=== PATIENT | female | born 1970 | race Caucasian/White ===

== ENCOUNTER 2024-01-09 08:06 | Outpatient (OUT) | payer BC, SELFPAY ==
[2024-01-09 09:16] LABS: Anion Gap 11.5; BUN Creatinine Ratio 13.3; Calcium 8.5 mg/dL (8.5-10.1); Carbon Dioxide 28.7 mmol/L (21.0-32.0); Chloride 103 mmol/L (98-107); Chol HDL Ratio 3.1; Cholesterol 202 mg/dL (<=200); Estimated GFR (African America >60 (>=60); Estimated GFR (Non-African Ame >60 (>=60); Glucose 93 mg/dL (74-106); HDL Cholesterol 65 mg/dL (40-60); Potassium 4.2 mmol/L (3.5-5.1); Sodium 139 mmol/L (136-145); TSH W/ REFLEX FT4 2.175 uIU/mL (0.358-3.740); Triglycerides 72 mg/dL (<=150); VLDL CHOLESTEROL 14.4 mg/dL
[2024-01-09 09:45] LABS: Basophils Percent Auto 0.6 % (0.2-2.0); Eosinophils Absolute Auto 0.2 10^3/uL (0.0-0.7); Eosinophils Percent Auto 3.3 % (0.9-7.0); Hematocrit 43.4 % (36.0-48.0); Hemoglobin 13.7 g/dL (12.0-16.0); Immature Granulocytes Abs Auto 0.07 10^3/uL (0.00-0.03); Immature Granulocytes Pct Auto 1.1 % (0.0-0.5); Lymphocytes Absolute Auto 1.4 10^3/uL (1.2-3.8); Lymphocytes Percent Auto 21.9 % (20.5-60.0); Mean Corpuscular HGB Conc 31.6 g/dL (29.9-35.2); Mean Corpuscular Hemoglobin 29.5 pg (26.7-34.0); Mean Corpuscular Volume 93.3 fL (81.0-99.0); Mean Platelet Volume 10.6 fL (9.5-13.5); Monocytes Absolute Auto 0.5 10^3/uL (0.3-0.8); Monocytes Percent Auto 7.3 % (1.7-12.0); Neutrophils Absolute Auto 4.3 10^3/uL (1.4-6.5); Neutrophils Percent Auto 65.8 % (43.0-75.0); Platelet Count 289 10^3/uL (150-450); Red Blood Count 4.65 10^6/uL (4.20-5.40); White Blood Count 6.6 10^3/uL (4.0-11.0)
== END 2024-01-09 08:07 | disposition home or self-care (01) ==
LOC: LAB 08:06
PROVIDERS: PCP Family Medicine; Visit Provider Family Medicine
DX: E88.810 Metabolic syndrome (principal); E55.9 Vitamin D deficiency, unspecified
CPT/HCPCS: 36415; 80048; 80061; 82306; 84443; 85025

== ENCOUNTER 2024-02-04 07:21 | Outpatient (OUT) | payer BC, SELFPAY ==
--- NOTE | 2024-02-04 07:25 | MM_ITS ---
Patient Name: RASHAWN CHAHAL MR#: [id number] : 1970 Exam Date: 02/04/2024 Ordering Doctor: DR Ha Dee M.D. RADIOLOGY REPORT PROCEDURE: MM TOMOSYNTHESIS SCREENING BI COMPARISON: MG MAMM SCREEN ZE W CAD, 01/30/2022. MG MAMM DIAGNOSTIC 3D ZE CAD, 01/20/2023. INDICATIONS: Screening, Z12.31 Calculator Name NCI Breast Cancer Risk Assessment Tool 5 Year Breast Cancer Risk Not Reported. Lifetime Breast Cancer Risk Not Reported. Personal Breast Cancer No Personal Ovarian Cancer No Treatments None Family Cancers None LOCATION: [facility] BREAST COMPOSITION: The breasts are extremely dense, which lowers the sensitivity of mammography. FINDINGS: DIAGNOSTIC CATEGORY 2--BENIGN FINDING. NO CHANGE FROM COMPARISON. Scattered benign-appearing calcifications are present. Scattered benign-appearing lymph nodes are present. RIGHT BREAST: No significant suspicious finding. LEFT BREAST: No significant suspicious finding. Decrease in size of nodule upper outer quadrant RECOMMENDATIONS: ROUTINE MAMMOGRAM AND CLINICAL EVALUATION IN 12 MONTHS. PLEASE NOTE: A NORMAL MAMMOGRAM DOES NOT EXCLUDE THE POSSIBILITY OF BREAST CANCER. A CLINICALLY SUSPICIOUS PALPABLE LUMP SHOULD BE BIOPSIED. Dictated by: Aneudy Tolliver MD on 02/04/2024 at 10:39 Approved by: Aneudy Tolliver MD on 02/04/2024 at 10:41
== END 2024-02-04 07:22 | disposition home or self-care (01) ==
LOC: MAMMO 07:21
PROVIDERS: PCP Family Medicine; Visit Provider Family Medicine
DX: Z12.31 Encounter for screening mammogram for malignant neoplasm of breast (principal)
CPT/HCPCS: 77063; 77067

== ENCOUNTER 2024-04-22 07:34 | Outpatient (OUT) | payer BC, SELFPAY ==
--- OUTSIDE RECORDS SUMMARY | 2024-04-22 07:37 | XMS_ITS | CCD ---
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 Phone NISHA SEVILLA Admitting Unavailable NISHA SEVILLA Attending Unavailable NISHA SEVILLA Consulting Unavailable NISHA SEVILLA Attending Unavailable NISHA SEVILLA Consulting Unavailable NISHA SEVILLA Admitting Unavailable YOLIKELLY Echevarria Admitting Unavailable DR AYSE FLAHERTY Consulting Unavailable YOLIAMIRAHEW Attending Unavailable YOLI, KELLY Consulting Unavailable CHRISTINE, ELMA Referring Unavailable CHRISTINE, ELMA Primary Care Unavailable JOSE-AAMIR, BILL Primary Care Unavailabl e LORI ROSITA P Referring Unavailable JOSE-AAMIR, BILL Primary Care Unavailabl e LORI, ROSITA P Referring Unavailable CHRISTINE, ELMA Primary Care Unavailable CHRISTINE, ELMA Referring Unavailable Allergies Allergy Classification Reported Allergen(s) Allergy Type Date of Onset Reaction(s) Facility (1 source) Penicillin Drug Allergy 02-13-2021 [facility] Repository Problems Active Problems Problem Classification Problem Date Documented Da te Episodic/Chronic Immunizations and screening for infectious disease (4 sources) Encounter for immunization; Translations: [ENCOUNTER FOR IMMUNIZATION] Onset: 03-06-2021 Episodic Nonmalignant breast conditions (1 source) Solitary cyst of left breast; Translations: [Solitary cyst of left breast] Onset: 01-20-2023 Episodic Past or Other Problems Problem Classification Problem Date Documented Da te Episodic/Chronic Other connective tissue disease (4 sources) Pain in right hand; Translations: [PAIN IN RIGHT HAND] Onset: 09-25-2020 Episodic Other screening for suspected conditions (not mental disorders or infectious disease) (2 sources) Other abnormal and inconclusive findings on diagnostic imaging of breast; Translations: [Encounter for screening mammogram for malignant neoplasm of breast] Onset: 01-30-2022 Episodic Results Test Name Value Interpretation Reference Range Facil ity [facility] DIGITAL DIAGNOSTIC BILATERALon 01-20-2023 [facility] DIGITAL DIAGNOSTIC BILATERAL EXAMINATION: [facility] DIGITAL DIAGNOSTIC BILATERAL; US BREAST LIMITED LEFT 01/20/2023 TECHNIQUE: 12 digital mammographic views of both breast(s) are submitted for interpretation. Digital Tomosynthesis was performed. Left breast ultrasound COMPARISON: 01/30/2022 HISTORY: ORDERING SYSTEM PROVIDED HISTORY: Cyst, breast, left TECHNOLOGIST PROVIDED HISTORY: With US if needed Reason for exam:->cyst on left breast Increasing painful left cyst TC score of 18.3% life time FINDINGS: BREAST COMPOSITION: The breast parenchyma is heterogeneously dense(c) which may obscure small masses. There are no new suspicious abnormal masses, aggressive calcifications or architectural distortion. The rounded density in the upper outer quadrant of the left breast remains present and measures approximately 4 cm in diameter. The previous reported cyst is smaller than the previous exam.. Left breast ultrasound: Multiple longitudinal and transverse scans were obtained with special attention to the upper-outer quadrant of the left breast. There is persistent 2 simple cysts abutting 1 another with the largest measuring approximately 4 cm in diameter. The 2nd cyst is much smaller measuring approximately 0.6 cm in diameter. The richards are thin and there is good through transmission without evidence of malignancy. IMPRESSION: Persistent simple large cyst upper-outer quadrant left breast measuring up to 4 cm in diameter. BIRADS: BIRADS - CATEGORY 2 - Benign finding(s). The patient complains of of pain over the cyst and I recommend cyst aspiration under ultrasound guidance for treatment if desired. The [employer] [employer] and the Society of Breast Imaging recommends women receive annual mammograms starting at age 40. The [place] [employer]'s guidelines for women at AVERAGE RISK for breast cancer include: Women ages 40 to 44 should have a choice to start annual breast cancer screening with mammograms if they wish to do so. The risks of screening as well as the potential benefits should be considered. Women age 45 to 54 should get a mammogram every year. Women age 55 and older should switch to mammograms every 2 years, or have the choice to continue yearly screening. Women with a personal history of breast cancer, a family history of breast cancer, a genetic mutation known to increase risk of breast cancer (such as BRCA), and women who had radiation therapy to the chest before the age of 30 are at higher risk for breast cancer, not average risk and additional screening may be indicated. The above report was generated using voice recognition software. It may contain grammatical, syntax and spelling errors. Interpreted by: Alok Lara III, DO Signed by: Alok Lara III, DO 01/20/23 Final result Normal [facility] US BREAST LIMITED LEFTon US BREAST LIMITED LEFT EXAMINATION: [facility] DIGITAL DIAGNOSTIC BILATERAL; US BREAST LIMITED LEFT 01/20/2023 TECHNIQUE: 12 digital mammographic views of both breast(s) are submitted for interpretation. Digital Tomosynthesis was performed. Left breast ultrasound COMPARISON: 01/30/2022 HISTORY: ORDERING SYSTEM PROVIDED HISTORY: Cyst, breast, left TECHNOLOGIST PROVIDED HISTORY: With US if needed Reason for exam:->cyst on left breast Increasing painful left cyst TC score of 18.3% life time FINDINGS: BREAST COMPOSITION: The breast parenchyma is heterogeneously dense(c) which may obscure small masses. There are no new suspicious abnormal masses, aggressive calcifications or architectural distortion. The rounded density in the upper outer quadrant of the left breast remains present and measures approximately 4 cm in diameter. The previous reported cyst is smaller than the previous exam.. Left breast ultrasound: Multiple longitudinal and transverse scans were obtained with special attention to the upper-outer quadrant of the left breast. There is persistent 2 simple cysts abutting 1 another with the largest measuring approximately 4 cm in diameter. The 2nd cyst is much smaller measuring approximately 0.6 cm in diameter. The richards are thin and there is good through transmission without evidence of malignancy. IMPRESSION: Persistent simple large cyst upper-outer quadrant left breast measuring up to 4 cm in diameter. BIRADS: BIRADS - CATEGORY 2 - Benign finding(s). The patient complains of of pain over the cyst and I recommend cyst aspiration under ultrasound guidance for treatment if desired. The [place] [employer] and the Society of Breast Imaging recommends women receive annual mammograms starting at age 40. The [place] [employer]'s guidelines for women at AVERAGE RISK for breast cancer include: Women ages 40 to 44 should have a choice to start annual breast cancer screening with mammograms if they wish to do so. The risks of screening as well as the potential benefits should be considered. Women age 45 to 54 should get a mammogram every year. Women age 55 and older should switch to mammograms every 2 years, or have the choice to continue yearly screening. Women with a personal history of breast cancer, a family history of breast cancer, a genetic mutation known to increase risk of breast cancer (such as BRCA), and women who had radiation therapy to the chest before the age of 30 are at higher risk for breast cancer, not average risk and additional screening may be indicated. The above report was generated using voice recognition software. It may contain grammatical, syntax and spelling errors. Interpreted by: Alok Lara III, DO Signed by: Alok Lara III, DO 01/20/23 Final result Normal [facility] US BREAST LIMITED LEFTon US BREAST LIMITED LEFT COMPARISON: September 25, 2012, ultrasound left breast; January 30, 2022, mammogram HISTORY: R92.8 Abnormal mammogram ICD10 PATIENT NAME: RASHAWN CHAHAL: TECHNIQUE: US BREAST LIMITED LEFT FINDINGS: At 2:00 6 cm from the nipple 4.8 x 3.9 x 2.2 cm cyst is seen. It has a single septation. There also is an adjacent cyst that measures 0.9 x 1.0 x 0.8 cm. This appears to be a simple cyst. IMPRESSION: Recommend annual bilateral 2-D and 3-D mammograms, routine physicals as recommended and any palpable abnormality be managed based on findings clinical examination. BI-RADS 2: BENIGN FINDINGS. Board Certified Radiologists. Accredited by the ACR and FDA. MAMMOGRAPHY IS VERY IMPORTANT TO YOUR HEALTH. THE [place] [employer] GUIDELINES RECOMMEND THAT WOMEN 40 YEARS OF AGE AND OLDER SHOULD HAVE A MAMMOGRAM EVERY YEAR. A REMINDER LETTER WILL BE SENT AT THE APPROPRIATE TIME. Interpreted by: Kaushik Tamez DO Signed by: Kaushik Tamez DO 02/06/22 Final result Normal [facility] DIGITAL SCREEN AGATHA Weiner 01-30-2022 [facility] DIGITAL SCREEN BILATERAL EXAMINATION: [facility]IO DIGITAL SCREEN BILATERAL CLINICAL HISTORY:Z12.31 ENCOUNTER FOR SCREENING MAMMOGRAM FOR MALIGNANT NEOPLASM OF BREAST ICD10 COMPARISON: APRIL 22, 2018 FINDINGS:3-D tomosynthesis imaging of the bilateral breasts was performed. The breasts are extremely dense, which lowers the sensitivity of mammography. 5 cm mass upper outer left breast. Additional imaging recommended. CAD analysis was performed and used in the interpretation. IMPRESSION: BI-RADS 0: NEED ADDITIONAL IMAGING EVALUATION. Board Certified Radiologists. Accredited by the ACR and FDA. MAMMOGRAPHY IS VERY IMPORTANT TO YOUR HEALTH. THE [place] [employer] GUIDELINES RECOMMEND THAT WOMEN 40 YEARS OF AGE AND OLDER SHOULD HAVE A MAMMOGRAM EVERY YEAR. A REMINDER LETTER WILL BE SENT AT THE APPROPRIATE TIME. THIS FACILITY UTILIZES A REMINDER SYSTEM TO ENSURE ALL PATIENTS RECEIVE REMINDER NOTIFICATIONS AT THE APPROPRIATE TIME BASED ON THE RECOMMENDATIONS OF THIS EXAM. THIS INCLUDES REMINDERS FOR ROUTINE SCREENING MAMMOGRAMS, DIAGNOSTIC MAMMOGRAMS IN WHICH THE PATIENT IS ASKED TO RETURN FOR ADDITIONAL VIEWS, OR OTHER BREAST IMAGING INTERVENTIONS WHEN APPROPRIATE. THE PATIENT WILL BE PLACED IN THE APPROPRIATE REMINDER SYSTEM INCLUDING A REMINDER AT THE APPROPRIATE TIME FOR ANY PENDING ADDITIONAL VIEWS. April 22, 2018 Interpreted by: Pranav Carrillo MD Signed by: Pranav Carrillo MD 02/02/22 Final result Normal [facility] CBC With Platelet and Differ entialon 03-30-2021 Basophils (Bld) [#/Vol] 0.0 10*3/uL Normal 0.0-0.2 [facility] Comment on above: Performed By: #### C BCWD #### [facility] [address] [place] [address] Basophils/100 WBC (Bld) 0.3 % Normal [facility] Comment on above: Performed By: #### C BCWD #### [facility] [address] [place] [address] Eosinophils (Bld) [#/Vol] 0.2 10*3/uL Normal 0.0-0.7 [facility] Comment on above: Performed By: #### C BCWD #### [facility] [address] [place] [address] Eosinophils/100 WBC (Bld) 2.7 % Normal [facility] Comment on above: Performed By: #### C BCWD #### [facility] [address] [place] [address] Erythrocyte distribution width (RBC) [Ratio] 13.2 % Normal 11.5-14.5 [facility] Comment on above: Performed By: #### C BCWD #### [facility] [address] [place] [address] Hematocrit (Bld) [Volume fraction] 43.5 % Normal 37.0-47.0 [facility] Comment on above: Performed By: #### C BCWD #### [facility] [address] [place] [address] Hemoglobin (Bld) [Mass/Vol] 14.3 g/dL Normal 12.0-16.0 [facility] Comment on above: Performed By: #### C BCWD #### [facility] [address] [place] [address] Lymphocytes (Bld) [#/Vol] 1.1 10*3/uL Normal 1.0-4.8 [facility] Comment on above: Performed By: #### C BCWD #### [facility] [address] [place] [address] Lymphocytes/100 WBC (Bld) 16.2 % Normal [facility] Comment on above: Performed By: #### C BCWD #### [facility] [address] [place] [address] MCH (RBC) [Entitic mass] 30.5 pg Normal 27.0-31.3 [facility] Comment on above: Performed By: #### C BCWD #### [facility] [address] [place] [address] MCHC 33.0 % Normal 33.0-37.0 [facility] Comment on above: Performed By: #### C BCWD #### [facility] [address] [place] [address] MCV (RBC) [Entitic vol] 92.4 fL Normal 82.0-100.0 [facility] Comment on above: Performed By: #### C BCWD #### [facility] [address] [place] [address] Monocytes (Bld) [#/Vol] 0.5 10*3/uL Normal 0.2-0.8 [facility] Comment on above: Performed By: #### C BCWD #### [facility] [address] [place] [address] Monocytes/100 WBC (Bld) 7.1 % Normal [facility] Comment on above: Performed By: #### C BCWD #### [facility] [address] [place] [address] Neutrophils (Bld) [#/Vol] 4.8 10*3/uL Normal 1.4-6.5 [facility] Comment on above: Performed By: #### C BCWD #### [facility] [address] [place] [address] Neutrophils/100 WBC (Bld) 73.7 % Normal [facility] Comment on above: Performed By: #### C BCWD #### [facility] [address] [place] [address] Platelets (Bld) [#/Vol] 261 10*3/uL Normal 130-400 [facility] Comment on above: Performed By: #### C BCWD #### [facility] [address] [place] [address] RBC (Bld) [#/Vol] 4.71 10*6/uL Normal 4.20-5.40 [facility] Comment on above: Performed By: #### C BCWD #### [facility] [address] [place] [address] WBC (Bld) [#/Vol] 6.6 10*3/uL Normal 4.8-10.8 [facility] Comment on above: Performed By: #### C BCWD #### [facility] [address] [place] [address] Comprehensive Metabolic Pane johanny 03-30-2021 Albumin [Mass/Vol] 4.5 g/dL Normal 3.5-4.6 [facility] Comment on above: Performed By: #### F SH #### [facility] [address] [place] [address] ALP [Catalytic activity/Vol] 79 U/L Normal 40-130 [facility] Comment on above: Performed By: #### F SH #### [facility] [address] [place] [address] ALT [Catalytic activity/Vol] 19 U/L Normal 0-33 [facility] Comment on above: Performed By: #### F SH #### [facility] [address] [place] [address] Anion gap [Moles/Vol] 13 mmol/L Normal 9-15 [facility] Comment on above: Performed By: #### F SH #### [facility] [address] [place] [address] AST [Catalytic activity/Vol] 17 U/L Normal 0-35 [facility] Comment on above: Performed By: #### F SH #### [facility] [address] [place] [address] Bilirubin [Mass/Vol] 0.4 mg/dL Normal 0.2-0.7 [facility] [place] Comment on above: Performed By: #### F SH #### [facility] [address] [place] [address] Calcium [Mass/Vol] 8.9 mg/dL Normal 8.5-9.9 [facility] Comment on above: Performed By: #### F SH #### [facility] [address] [place] [address] Chloride [Moles/Vol] 104 mmol/L Normal 95-107 [facility] [place] Comment on above: Performed By: #### F SH #### [facility] [address] [place] [address] CO2 [Moles/Vol] 25 mmol/L Normal 20-31 [facility] Comment on above: Performed By: #### F SH #### [facility] [address] [place] [address] Creatinine [Mass/Vol] 0.65 mg/dL Normal 0.50-0.90 [facility] Comment on above: Performed By: #### F SH #### [facility] [address] [place] [address] GFR >60.0 Normal >60 [facility] Comment on above: Result Comment: >60 mL/min/1.73m2 EGFR, calc. for ages 18 and older using the MDRD formula (not corrected for weight), is valid for stable renal function. Performed By: #### F SH #### [facility] [address] [place] [address] GFR/1.73 sq M.predicted among blacks MDRD (S/P/Bld) [Vol rate/Area] mL/min/{1.73_m2} Normal >60 [facility] Comment on above: Result Comment: >60 mL/min/1.73m2 EGFR, calc. for ages 18 and older using the MDRD formula (not corrected for weight), is valid for stable renal function. Performed By: #### F SH #### [facility] [address] [place] [address] Globulin (S) [Mass/Vol] 2.2 g/dL Low 2.3-3.5 [facility] Comment on above: Performed By: #### F SH #### [facility] [address] [place] [address] Glucose [Mass/Vol] 88 mg/dL Normal 70-99 [facility] Comment on above: Performed By: #### F SH #### [facility] [address] [place] [address] Potassium [Moles/Vol] 4.4 mmol/L Normal 3.4-4.9 [facility] Comment on above: Performed By: #### F SH #### [facility] [address] [place] [address] Protein [Mass/Vol] 6.7 g/dL Normal 6.3-8.0 [facility] Comment on above: Performed By: #### F SH #### [facility] [address] [place] [address] Sodium [Moles/Vol] 142 mmol/L Normal 135-144 [facility] Comment on above: Performed By: #### F SH #### [facility] [address] [place] [address] Urea nitrogen [Mass/Vol] 10 mg/dL Normal 6-20 [facility] Comment on above: Performed By: #### F SH #### [facility] [address] [place] [address] Estradiolon 03-30-2021 Estradiol 175 pg/mL Normal [facility] Comment on above: Result Comment: Defa ult Normal Ranges: Women Follicular Phase: 12.4-233 Ovulation Phase: 41.0-398 Luteal Phase: 22.3-341 Postmenopause: <5-138 1st Trimester: 136-3243 2nd Trimester: 1561-85294 3rd Trimester: 8525->86281 Males 25.8-60.7 Due to the risk of cross-reactivity of Fulvestrant with this method, estradiol results may be falsely elevated. For patients being treated with Fulvestrant, it is recommended that estradiol be monitored using Free Estradiol by Liquid Chromatography-Mass Spectrometry. Performed By: #### F SH #### [facility] [address] [place] [address] FSHon 03-30-2021 FSH 16.5 mIU/mL Normal [facility] Comment on above: Result Comment: Expe cted Values Normally Menstruating Females Follicular Phase: 2.5 - 12.5 mIU/mL Mid-Cycle Peak : 4.7 - 21.5 mIU/mL Luteal Phase: 1.7 - 7.7 mIU/mL Females: Less than 0.3mIU/mL Post Menopausal Females: 25.8 - 134.8 mIU/mL Males(13 - 70 years): 1.5 - 12.4 mIU/mL Performed By: #### F SH #### [facility] [address] [place] [address] Lipid Panel Fastingon 2020 Cholesterol [Mass/Vol] 263 mg/dL Critically high 0-199 [facility] Comment on above: Result Comment: ATP III Cholesterol Classification is High. Performed By: #### L IPDF #### [facility] [address] [place] [address] HDL Cholesterol Fasting 47 mg/dL Normal 40-59 [facility] Comment on above: Result Comment: ATP III HDL Cholesterol Classification is Desirable. Expected Values: Males: >55 = No Risk 35-55 = Moderate Risk <35 = High Risk Females: >65 = No Risk 45-65 = Moderate Risk <45 = High Risk NCEP Guidelines: Third Report October 2000 >59 = negative risk factor for CHD <40 = major risk factor for CHD Performed By: #### L IPDF #### [facility] [address] [facility] [address] LDL Cholesterol (Calculated) Fasting 192 mg/dL Critically high 0-129 [facility] Comment on above: Result Comment: ATT III Classification is Very High. Performed By: #### L IPDF #### [facility] [address] [facility] [address] Triglycerides Fasting 120 mg/dL Normal 0-150 [facility] Comment on above: Result Comment: ATP III Triglycerides Classification is Normal. Performed By: #### L IPDF #### [facility] [address] [facility] [address] Luteinizing Hormoneon 2020 Luteinizing Hormone 46.1 mIU/mL Normal [facility] [place] Comment on above: Result Comment: Expe cted Values: Females: Follicular Phase: 2.4 - 12.6 mIU/mL Mid- Cycle Peak: 14.0 - 95.6 mIU/mL Luteal Phase: 1.0 - 11.4 mIU/mL Post Menopausal: 7.7 - 58.5 mIU/mL Males: 1.7 - 8.6 mIU/mL Performed By: #### L H #### [facility] [address] [facility] [address] TSH w/Reflexon 03-30-2021 TSH w/Reflex 1.700 uIU/mL Normal 0.440-3.86 [facility] Comment on above: Performed By: #### T SHR #### [facility] [address] [facility] [address] Vitamin Don 03-30-2021 Vitamin D 32.7 ng/mL Normal 30.0-100.0 [facility] Comment on above: Result Comment: (30- 100 ng/mL) Optimum Level This assay accurately quantifies the sum of vitamin D3, 25-Hydroxy and vitamin D2, 25-Hyroxy. Performed By: #### V ITD #### [facility] [address] [place] [address] COVID-19, NAAon 06-14-2020 SARS-CoV-2 (COVID-19) RNA VENUS+probe Ql (Unsp spec) Detected Abnormal Not Detect [facility] Comment on above: Result Comment: This nucleic acid amplification test was developed and its performance characteristics determined by [employer]. Nucleic acid amplification tests include PCR and TMA. This test has not been FDA cleared or approved. This test has been authorized by FDA under an Emergency Use Authorization (EUA). This test is only authorized for the duration of time the declaration that circumstances exist justifying the authorization of the emergency use of in vitro diagnostic tests for detection of SARS-CoV-2 virus and/or diagnosis of COVID-19 infection under section 564(b)(1) of the Act, 21 U.S.C. 360bbb-3(b) (1), unless the authorization is terminated or revoked sooner. When diagnostic testing is negative, the possibility of a false negative result should be considered in the context of a patient's recent exposures and the presence of clinical signs and symptoms consistent with COVID-19. An individual without symptoms of COVID-19 and who is not shedding SARS-CoV-2 virus would expect to have a negative (not detected) result in this assay. Performed at: [facility] [address], [place] [id number] Claim Professional: Nicole Whittington MD, Phone: [phone] Performed By: #### F SH #### [facility] [address] [place] [address] COVID-19, NAAon 06-13-2020 Source Swab Anterior nares Normal [facility] Comment on above: Performed By: #### F SH #### [facility] [address] [place] [address] FSHon 05-21-2020 FSH 13.9 mIU/mL Normal [facility] Comment on above: Result Comment: Expe cted Values Normally Menstruating Females Follicular Phase: 2.5 - 12.5 mIU/mL Mid-Cycle Peak : 4.7 - 21.5 mIU/mL Luteal Phase: 1.7 - 7.7 mIU/mL Females: Less than 0.3mIU/mL Post Menopausal Females: 25.8 - 134.8 mIU/mL Males(13 - 70 years): 1.5 - 12.4 mIU/mL Performed By: #### F SH #### [facility] [address] [place] [address] CBC With Platelet and Differ entialon 05-20-2020 Basophils (Bld) [#/Vol] 0.0 10*3/uL Normal 0.0-0.2 [facility] Comment on above: Performed By: #### C BCWD #### [facility] [address] [place] [address] Basophils/100 WBC (Bld) 0.5 % Normal [facility] Comment on above: Performed By: #### C BCWD #### [facility] [address] [place] [address] Eosinophils (Bld) [#/Vol] 0.1 10*3/uL Normal 0.0-0.7 [facility] Comment on above: Performed By: #### C BCWD #### [facility] [address] [place] [address] Eosinophils/100 WBC (Bld) 3.1 % Normal [facility] Comment on above: Performed By: #### C BCWD #### [facility] [address] [place] [address] Erythrocyte distribution width (RBC) [Ratio] 13.1 % Normal 11.5-14.5 [facility] Comment on above: Performed By: #### C BCWD #### [facility] [address] [place] [address] Hematocrit (Bld) [Volume fraction] 40.3 % Normal 37.0-47.0 [facility] Comment on above: Performed By: #### C BCWD #### [facility] [address] [place] [address] Hemoglobin (Bld) [Mass/Vol] 13.3 g/dL Normal 12.0-16.0 [facility] Comment on above: Performed By: #### C BCWD #### [facility] [address] [place] [address] Lymphocytes (Bld) [#/Vol] 1.1 10*3/uL Normal 1.0-4.8 [facility] Comment on above: Performed By: #### C BCWD #### [facility] [address] [place] [address] Lymphocytes/100 WBC (Bld) 22.9 % Normal [facility] Comment on above: Performed By: #### C BCWD #### [facility] [address] [place] [address] MCH (RBC) [Entitic mass] 30.3 pg Normal 27.0-31.3 [facility] Comment on above: Performed By: #### C BCWD #### [facility] [address] [place] [address] MCHC 33.1 % Normal 33.0-37.0 [facility] Comment on above: Performed By: #### C BCWD #### [facility] [address] [place] [address] MCV (RBC) [Entitic vol] 91.4 fL Normal 82.0-100.0 [facility] Comment on above: Performed By: #### C BCWD #### [facility] [address] [place] [address] Monocytes (Bld) [#/Vol] 0.3 10*3/uL Normal 0.2-0.8 [facility] Comment on above: Performed By: #### C BCWD #### [facility] [address] [place] [address] Monocytes/100 WBC (Bld) 6.4 % Normal [facility] Comment on above: Performed By: #### C BCWD #### [facility] [address] [place] [address] Neutrophils (Bld) [#/Vol] 3.2 10*3/uL Normal 1.4-6.5 [facility] Comment on above: Performed By: #### C BCWD #### [facility] [address] [place] [address] Neutrophils/100 WBC (Bld) 67.1 % Normal [facility] Comment on above: Performed By: #### C BCWD #### [facility] [address] [place] [address] Platelets (Bld) [#/Vol] 268 10*3/uL Normal 130-400 [facility] Comment on above: Performed By: #### C BCWD #### [facility] [address] [place] [address] RBC (Bld) [#/Vol] 4.41 10*6/uL Normal 4.20-5.40 [facility] Comment on above: Performed By: #### C BCWD #### [facility] [address] [place] [address] WBC (Bld) [#/Vol] 4.8 10*3/uL Normal 4.8-10.8 [facility] Comment on above: Performed By: #### C BCWD #### [facility] [address] [place] [address] Comprehensive Metabolic Pane johanny 05-20-2020 Albumin [Mass/Vol] 3.8 g/dL Normal 3.5-4.6 [facility] Comment on above: Performed By: #### F SH #### [facility] [address] [place] [address] ALP [Catalytic activity/Vol] 75 U/L Normal 40-130 [facility] Comment on above: Performed By: #### F SH #### [facility] [address] [place] [address] ALT [Catalytic activity/Vol] 27 U/L Normal 0-33 [facility] Comment on above: Performed By: #### F SH #### [facility] [address] [place] [address] Anion gap [Moles/Vol] 9 mmol/L Normal 9-15 [facility] Comment on above: Performed By: #### F SH #### [facility] [address] [place] [address] AST [Catalytic activity/Vol] 20 U/L Normal 0-35 [facility] Comment on above: Performed By: #### F SH #### [facility] [address] [place] [address] Bilirubin [Mass/Vol] 0.3 mg/dL Normal 0.2-0.7 [facility] [place] Comment on above: Performed By: #### F SH #### [facility] [address] [place] [address] Calcium [Mass/Vol] 8.5 mg/dL Normal 8.5-9.9 [facility] Comment on above: Performed By: #### F SH #### [facility] [address] [place] [address] Chloride [Moles/Vol] 105 mmol/L Normal 95-107 [facility] [place] Comment on above: Performed By: #### F SH #### [facility] [address] [place] [address] CO2 [Moles/Vol] 27 mmol/L Normal 20-31 [facility] Comment on above: Performed By: #### F SH #### [facility] [address] [place] [address] Creatinine [Mass/Vol] 0.57 mg/dL Normal 0.50-0.90 [facility] Comment on above: Performed By: #### F SH #### [facility] [address] [place] [address] GFR >60.0 Normal >60 [facility] Comment on above: Result Comment: >60 mL/min/1.73m2 EGFR, calc. for ages 18 and older using the MDRD formula (not corrected for weight), is valid for stable renal function. Performed By: #### F SH #### [facility] [address] [place] [address] GFR/1.73 sq M.predicted among blacks MDRD (S/P/Bld) [Vol rate/Area] mL/min/{1.73_m2} Normal >60 [facility] Comment on above: Result Comment: >60 mL/min/1.73m2 EGFR, calc. for ages 18 and older using the MDRD formula (not corrected for weight), is valid for stable renal function. Performed By: #### F SH #### [facility] [address] [place] [address] Globulin (S) [Mass/Vol] 2.3 g/dL Normal 2.3-3.5 [facility] Comment on above: Performed By: #### F SH #### [facility] [address] [place] [address] Glucose [Mass/Vol] 88 mg/dL Normal 70-99 [facility] Comment on above: Performed By: #### F SH #### [facility] [address] [place] [address] Potassium [Moles/Vol] 3.9 mmol/L Normal 3.4-4.9 [facility] Comment on above: Performed By: #### F SH #### [facility] [address] [place] [address] Protein [Mass/Vol] 6.1 g/dL Low 6.3-8.0 [facility] Comment on above: Performed By: #### F SH #### [facility] [address] [place] [address] Sodium [Moles/Vol] 141 mmol/L Normal 135-144 [facility] Comment on above: Performed By: #### F SH #### [facility] [address] [place] [address] Urea nitrogen [Mass/Vol] 9 mg/dL Normal 6-20 [facility] Comment on above: Performed By: #### F SH #### [facility] [address] [place] [address] Lipid Panel Fastingon 2019 Cholesterol [Mass/Vol] 258 mg/dL Critically high 0-199 [facility] Comment on above: Result Comment: ATP III Cholesterol Classification is High. Performed By: #### L IPDF #### [facility] [address] [place] [address] HDL Cholesterol Fasting 43 mg/dL Normal 40-59 [facility] Comment on above: Result Comment: ATP III HDL Cholesterol Classification is Desirable. Expected Values: Males: >55 = No Risk 35-55 = Moderate Risk <35 = High Risk Females: >65 = No Risk 45-65 = Moderate Risk <45 = High Risk NCEP Guidelines: Third Report October 2000 >59 = negative risk factor for CHD <40 = major risk factor for CHD Performed By: #### L IPDF #### [facility] [address] [place] [address] LDL Cholesterol (Calculated) Fasting 175 mg/dL Critically high 0-129 [facility] Comment on above: Result Comment: ATP III LDL Classification is High. Performed By: #### L IPDF #### [facility] [address] [place] [address] Triglycerides Fasting 198 mg/dL Critically high 0-150 [facility] Comment on above: Result Comment: ATP III Triglycerides Classification is Borderline High. Performed By: #### L IPDF #### [facility] [address] [place] [address] TSH w/out Reflexon 0 TSH w/out Reflex 2.430 uIU/mL Normal 0.440-3.86 [facility] Comment on above: Performed By: #### T SH #### [facility] [address] [place] [address] Vitamin Don 05-20-2020 Vitamin D 22.7 ng/mL Low 30.0-100.0 [facility] Comment on above: Result Comment: (20- 30 ng/mL) Insufficiency This assay accurately quantifies the sum of vitamin D3, 25-Hydroxy and vitamin D2, 25-Hyroxy. Performed By: #### V ITD #### [facility] [address] [place] [address] Encounters Encounter Date Encounter Type Care Provider Facility Start: 01-20-2023 End: 01-23-2023 ambulatory [facility] Start: 02-06-2022 End: 02-09-2022 ambulatory [facility] Start: 01-30-2022 End: 02-02-2022 ambulatory [facility] Start: 03-06-2021 End: 03-07-2021 ambulatory NISHA SEVILLA Facility:[facility] Start: 02-13-2021 End: 02-14-2021 ambulatory NISHA SEVILLA Facility:[facility] Start: 09-25-2020 End: 09-26-2020 ambulatory KELLY KENT Facility:[facility] Payers Date Payer Category Payer Unknown [id number] 2022 Unknown [id number] 1970 Unknown [id number] 2.16.84 [id number] 1971 Unknown [id number] 2.16.84 [id number] 1971 Unknown [id number] 2.16.84 [id number] 1971 Unknown [id number] 2.16.8 [id number] 1971 Unknown [id number] 2.16.8 [id number] 1971 Unknown [id number] 2.16.8 [id number] 1971 Unknown [id number] 2.16.8 [id number] 1959 Unknown [id number] Clinical Note 09-25-2020 Note Date & Type Note Facility 09-25-2020 Note PROCEDURE: XR HAND R T 2 V HISTORY: Pain in right hand ; fourth and fifth metacarpal phalangeal joint pain; struck hand on doorway COMPARISON: None. FINDINGS: BONES:No fracture, acute abnormality, or significant arthropathy. SOFT TISSUES:No visible soft tissue swelling. EFFUSION:None visible. OTHER: Negative. IMPRESSION: 1. Normal examination. Electronically authenticated by: AYSE FLAHERTY Date: 2020-09-25 14:47 [facility] Summary Purpose Family History No Family History Records FoundNo Family History Records FoundNo Family History Records Found Advance Directives No Advanced Directives Records FoundNo Advanced Directives Records FoundNo Advanced Directives Records Found Additional Source Comments INFORMATION SOURCE (unrecogn ized section and content) DATE CREATED AUTHOR 03/29/2021 [facility] DATE CREATED AUTHOR AUTHOR'S ORGANIZ ATION 03/31/2021 [facility] DATE CREATED AUTHOR AUTHOR'S ORGANIZ ATION 01/23/2023 [facility] FOR RECORDS PERTAINING TO PATIENTS WHO ARE OR HAVE BEEN ENROLLED IN A CHEMICAL DEPENDENCY/SUBSTANCEABUSE PROGRAM, SOME INFORMATION MAY BE OMITTED. This clinical summary was aggregated from multiple sources. Caution should be exercised in using it in the provision of clinical care. This summary normalizes information from multiple sources, and as a consequence, information in this document may materially change the coding, format and clinical context of patient data. In addition, data may be omitted in some cases. CLINICAL DECISIONS SHOULD BE BASED ON THE PRIMARY CLINICAL RECORDS. [facility] [employer] [facility]. provides no warranty or guarantee of the accuracy or completeness of information in this document.
[2024-04-23 10:10] LABS: DHEA-Sulfate 38.4 ug/dL (41.2-243.7); Estradiol <5.0 pg/mL (.); FSH 78.3 mIU/mL (.); Luteinizing Hormone(LH) 38.6 mIU/mL (.); Progesterone 0.1 ng/mL (.); Prolactin 9.1 ng/mL (3.6-25.2); Sex Horm Binding Glob, Serum 66.7 nmol/L (17.3-125.0)
[2024-04-27 14:10] LABS: Estrone, Serum <6 pg/mL (.)
[2024-04-27 17:08] LABS: 17-OH Progesterone LCMS 14 ng/dL (.)
[2024-04-28 04:16] LABS: Free Testosterone(Direct) <0.2 pg/mL (0.0-4.2); Testosterone <3 ng/dL (4-50)
== END 2024-04-22 07:35 | disposition home or self-care (01) ==
LOC: LAB 07:35
PROVIDERS: PCP Family Medicine; Visit Provider Family Medicine
DX: E88.810 Metabolic syndrome (principal); N95.1 Menopausal and female climacteric states
CPT/HCPCS: 36415; 82157; 82533; 82627; 82642; 82670; 82679; 83001; 83002; 83498; 83516; 83525; 83527; 84144; 84146; 84270; 84402; 84403

== ENCOUNTER 2024-05-07 07:26 | Outpatient (OUT) | payer BC, SELFPAY ==
--- OUTSIDE RECORDS SUMMARY | 2024-05-07 07:31 | XMS_ITS | CCD ---
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 The [employer] and the Society of Breast Imaging recommends women receive annual mammograms starting at age 40. The [place] [employer]'s guidelines for women at AVERAGE [...] Lara III, DO 01/20/23 Final result Normal [facility] US BREAST LIMITED LEFTon US BREAST LIMITED [...] ultrasound guidance for treatment if desired. The [employer] and the Society of Breast Imaging recommends women receive annual mammograms starting at age 40. The [place] [employer]'s guidelines for women at AVERAGE [...] Lara III, DO 01/20/23 Final result Normal [facility] US BREAST LIMITED LEFTon US BREAST LIMITED [...] IS VERY IMPORTANT TO YOUR HEALTH. THE CITIZEN OF [place] [employer] GUIDELINES RECOMMEND THAT WOMEN 40 YEARS OF AGE AND OLDER SHOULD HAVE A MAMMOGRAM EVERY YEAR. A REMINDER LETTER WILL BE SENT AT THE APPROPRIATE TIME. Interpreted by: Kaushik Tamez DO Signed by: Kaushik Tamez DO 02/06/22 Final result Normal [facility] DIGITAL SCREEN AGATHA Weiner 01-30-2022 [facility] DIGITAL SCREEN BILATERAL EXAMINATION: [place] [facility] DIGITAL SCREEN BILATERAL CLINICAL HISTORY:Z12.31 ENCOUNTER FOR [...] IS VERY IMPORTANT TO YOUR HEALTH. THE CITIZEN OF [place] [employer] GUIDELINES RECOMMEND THAT WOMEN 40 [...] Pranav Carrillo MD 02/02/22 Final result Normal [facility] CBC With Platelet and Differ entialon 03-30-2021 Basophils (Bld) [#/Vol] 0.0 10*3/uL Normal 0.0-0.2 [facility] Comment on above: Performed By: #### C BCWD #### [facility] [address] [place] [address] Basophils/100 WBC (Bld) 0.3 % Normal [facility] Comment on above: Performed By: #### C BCWD #### [facility] [address] [place] [address] Eosinophils (Bld) [#/Vol] 0.2 10*3/uL Normal 0.0-0.7 [facility] Comment on above: Performed By: #### C BCWD #### [facility] [address] [place] [address] Eosinophils/100 WBC (Bld) 2.7 % Normal [facility] Comment on above: Performed By: #### C BCWD #### [facility] [address] [place] [address] Erythrocyte distribution width (RBC) [Ratio] 13.2 % Normal 11.5-14.5 [facility] Comment on above: Performed By: #### C BCWD #### [facility] [address] [place] [address] Hematocrit (Bld) [Volume fraction] 43.5 % Normal 37.0-47.0 [facility] Comment on above: Performed By: #### C BCWD #### [facility] [address] [place] [address] Hemoglobin (Bld) [Mass/Vol] 14.3 g/dL Normal 12.0-16.0 [facility] Comment on above: Performed By: #### C BCWD #### [facility] [address] [place] [address] Lymphocytes (Bld) [#/Vol] 1.1 10*3/uL Normal 1.0-4.8 [facility] Comment on above: Performed By: #### C BCWD #### [facility] [address] [place] [address] Lymphocytes/100 WBC (Bld) 16.2 % Normal [facility] Comment on above: Performed By: #### C BCWD #### [facility] [address] [place] [address] MCH (RBC) [Entitic mass] 30.5 pg Normal 27.0-31.3 [facility] Comment on above: Performed By: #### C BCWD #### [facility] [address] [place] [address] MCHC 33.0 % Normal 33.0-37.0 [facility] Comment on above: Performed By: #### C BCWD #### [facility] [address] [place] [address] MCV (RBC) [Entitic vol] 92.4 fL Normal 82.0-100.0 [facility] Comment on above: Performed By: #### C BCWD #### [facility] [address] [place] [address] Monocytes (Bld) [#/Vol] 0.5 10*3/uL Normal 0.2-0.8 [facility] Comment on above: Performed By: #### C BCWD #### [facility] [address] [place] [address] Monocytes/100 WBC (Bld) 7.1 % Normal [facility] Comment on above: Performed By: #### C BCWD #### [facility] [address] [place] [address] Neutrophils (Bld) [#/Vol] 4.8 10*3/uL Normal 1.4-6.5 [facility] Comment on above: Performed By: #### C BCWD #### [facility] [address] [place] [address] Neutrophils/100 WBC (Bld) 73.7 % Normal [facility] Comment on above: Performed By: #### C BCWD #### [facility] [address] [place] [address] Platelets (Bld) [#/Vol] 261 10*3/uL Normal 130-400 [facility] Comment on above: Performed By: #### C BCWD #### [facility] [address] [place] [address] RBC (Bld) [#/Vol] 4.71 10*6/uL Normal 4.20-5.40 [facility] Comment on above: Performed By: #### C BCWD #### [facility] [address] [place] [address] WBC (Bld) [#/Vol] 6.6 10*3/uL Normal 4.8-10.8 [facility] Comment on above: Performed By: #### C BCWD #### [facility] [address] [place] [address] Comprehensive Metabolic Pane johanny 03-30-2021 Albumin [Mass/Vol] 4.5 g/dL Normal 3.5-4.6 [facility] Comment on above: Performed By: #### F SH #### [facility] [address] [place] [address] ALP [Catalytic activity/Vol] 79 U/L Normal 40-130 [facility] Comment on above: Performed By: #### F SH #### [facility] [address] [place] [address] ALT [Catalytic activity/Vol] 19 U/L Normal 0-33 [facility] Comment on above: Performed By: #### F SH #### [facility] [address] [place] [address] Anion gap [Moles/Vol] 13 mmol/L Normal 9-15 [facility] Comment on above: Performed By: #### F SH #### [facility] [address] [place] [address] AST [Catalytic activity/Vol] 17 U/L Normal 0-35 [facility] Comment on above: Performed By: #### F SH #### [facility] [address] [place] [address] Bilirubin [Mass/Vol] 0.4 mg/dL Normal 0.2-0.7 [facility] Comment on above: Performed By: #### F SH #### [facility] [address] [place] [address] Calcium [Mass/Vol] 8.9 mg/dL Normal 8.5-9.9 [facility] Comment on above: Performed By: #### F SH #### [facility] [address] [place] [address] Chloride [Moles/Vol] 104 mmol/L Normal 95-107 [facility] Comment on above: Performed By: #### F SH #### [facility] [address] [place] [address] CO2 [Moles/Vol] 25 mmol/L Normal 20-31 [facility] Comment on above: Performed By: #### F SH #### [facility] [address] [place] [address] Creatinine [Mass/Vol] 0.65 mg/dL Normal 0.50-0.90 [facility] Comment on above: Performed By: #### F SH #### [facility] [address] [place] [address] GFR >60.0 Normal >60 [facility] Comment on above: Result Comment: >60 mL/min/1.73m2 EGFR, calc. for ages 18 and older using the MDRD formula (not corrected for weight), is valid for stable renal function. Performed By: #### F SH #### [facility] [address] [place] [address] GFR/1.73 sq M.predicted among blacks MDRD (S/P/Bld) [Vol rate/Area] mL/min/{1.73_m2} Normal >60 [facility] Comment on above: Result Comment: >60 mL/min/1.73m2 EGFR, calc. for ages 18 and older using the MDRD formula (not corrected for weight), is valid for stable renal function. Performed By: #### F SH #### [facility] [address] [place] [address] Globulin (S) [Mass/Vol] 2.2 g/dL Low 2.3-3.5 [facility] Comment on above: Performed By: #### F SH #### [facility] [address] [place] [address] Glucose [Mass/Vol] 88 mg/dL Normal 70-99 [facility] Comment on above: Performed By: #### F SH #### [facility] [address] [place] [address] Potassium [Moles/Vol] 4.4 mmol/L Normal 3.4-4.9 [facility] Comment on above: Performed By: #### F SH #### [facility] [address] [place] [address] Protein [Mass/Vol] 6.7 g/dL Normal 6.3-8.0 [facility] Comment on above: Performed By: #### F SH #### [facility] [address] [place] [address] Sodium [Moles/Vol] 142 mmol/L Normal 135-144 [facility] Comment on above: Performed By: #### F SH #### [facility] [address] [place] [address] Urea nitrogen [Mass/Vol] 10 mg/dL Normal 6-20 [facility] Comment on above: Performed By: #### F SH #### [facility] [address] [place] [address] Estradiolon 03-30-2021 Estradiol 175 pg/mL Normal [facility] Comment on above: Result Comment: Defa ult Normal Ranges: Women Follicular Phase: 12.4-233 Ovulation Phase: 41.0-398 Luteal Phase: 22.3-341 Postmenopause: <5-138 1st Trimester: 136-3243 2nd Trimester: 1561-82741 3rd Trimester: 8525->54478 Males 25.8-60.7 Due to the risk of cross-reactivity of Fulvestrant with this method, estradiol results may be falsely elevated. For patients being treated with Fulvestrant, it is recommended that estradiol be monitored using Free Estradiol by Liquid Chromatography-Mass Spectrometry. Performed By: #### F SH #### [facility] [address] [place] [address] FSHon 03-30-2021 FSH 16.5 mIU/mL Normal [facility] Comment on above: Result Comment: Expe cted Values Normally Menstruating Females Follicular Phase: 2.5 - 12.5 mIU/mL Mid-Cycle Peak : 4.7 - 21.5 mIU/mL Luteal Phase: 1.7 - 7.7 mIU/mL Females: Less than 0.3mIU/mL Post Menopausal Females: 25.8 - 134.8 mIU/mL Males(13 - 70 years): 1.5 - 12.4 mIU/mL Performed By: #### F SH #### [facility] [address] [place] [address] Lipid Panel Fastingon 2020 Cholesterol [Mass/Vol] 263 mg/dL Critically high 0-199 [facility] Comment on above: Result Comment: ATP III Cholesterol Classification is High. Performed By: #### L IPDF #### [facility] [address] [place] [address] HDL Cholesterol Fasting 47 mg/dL Normal 40-59 [facility] Comment on above: Result Comment: ATP III [...] CHD Performed By: #### L IPDF #### [facility] [address] [facility] [address] LDL Cholesterol (Calculated) Fasting 192 mg/dL Critically high 0-129 [facility] Comment on above: Result Comment: ATT III Classification is Very High. Performed By: #### L IPDF #### [facility] [address] [facility] [address] Triglycerides Fasting 120 mg/dL Normal 0-150 [facility] Comment on above: Result Comment: ATP III Triglycerides Classification is Normal. Performed By: #### L IPDF #### [facility] [address] [facility] [address] Luteinizing Hormoneon 2020 Luteinizing Hormone 46.1 mIU/mL Normal [facility] Comment on above: Result Comment: Expe cted Values: Females: Follicular Phase: 2.4 - 12.6 mIU/mL Mid- Cycle Peak: 14.0 - 95.6 mIU/mL Luteal Phase: 1.0 - 11.4 mIU/mL Post Menopausal: 7.7 - 58.5 mIU/mL Males: 1.7 - 8.6 mIU/mL Performed By: #### L H #### [facility] [address] [facility] [address] TSH w/Reflexon 03-30-2021 TSH w/Reflex 1.700 uIU/mL Normal 0.440-3.86 [facility] Comment on above: Performed By: #### T SHR #### [facility] [address] [facility] [address] Vitamin Don 03-30-2021 Vitamin D 32.7 ng/mL Normal 30.0-100.0 [facility] Comment on above: Result Comment: (30- 100 ng/mL) Optimum Level This assay accurately quantifies the sum of vitamin D3, 25-Hydroxy and vitamin D2, 25-Hyroxy. Performed By: #### V ITD #### [facility] [address] [place] [address] COVID-19, NAAon 06-14-2020 SARS-CoV-2 (COVID-19) RNA VENUS+probe Ql (Unsp spec) Detected Abnormal Not Detect [facility] Comment on above: Result Comment: This nucleic acid amplification test was developed and its performance characteristics determined by [employer]. Nucleic acid amplification tests include PCR and [...] detected) result in this assay. Performed at: [facility] [address] [facility], [place] [id number] Board Attendant: Nicole Whittington MD, Phone: [phone] Performed By: #### F SH #### [facility] [address] [place] [address] COVID-19, NAAon 06-13-2020 Source Swab Anterior nares Normal [facility] Comment on above: Performed By: #### F SH #### [facility] [address] [place] [address] FSHon 05-21-2020 FSH 13.9 mIU/mL Normal [facility] Comment on above: Result Comment: Expe cted Values Normally Menstruating Females Follicular Phase: 2.5 - 12.5 mIU/mL Mid-Cycle Peak : 4.7 - 21.5 mIU/mL Luteal Phase: 1.7 - 7.7 mIU/mL Females: Less than 0.3mIU/mL Post Menopausal Females: 25.8 - 134.8 mIU/mL Males(13 - 70 years): 1.5 - 12.4 mIU/mL Performed By: #### F SH #### [facility] [address] [place] [address] CBC With Platelet and Differ entialon 05-20-2020 Basophils (Bld) [#/Vol] 0.0 10*3/uL Normal 0.0-0.2 [facility] Comment on above: Performed By: #### C BCWD #### [facility] [address] [place] [address] Basophils/100 WBC (Bld) 0.5 % Normal [facility] Comment on above: Performed By: #### C BCWD #### [facility] [address] [place] [address] Eosinophils (Bld) [#/Vol] 0.1 10*3/uL Normal 0.0-0.7 [facility] Comment on above: Performed By: #### C BCWD #### [facility] [address] [place] [address] Eosinophils/100 WBC (Bld) 3.1 % Normal [facility] Comment on above: Performed By: #### C BCWD #### [facility] [address] [place] [address] Erythrocyte distribution width (RBC) [Ratio] 13.1 % Normal 11.5-14.5 [facility] Comment on above: Performed By: #### C BCWD #### [facility] [address] [place] [address] Hematocrit (Bld) [Volume fraction] 40.3 % Normal 37.0-47.0 [facility] Comment on above: Performed By: #### C BCWD #### [facility] [address] [place] [address] Hemoglobin (Bld) [Mass/Vol] 13.3 g/dL Normal 12.0-16.0 [facility] Comment on above: Performed By: #### C BCWD #### [facility] [address] [place] [address] Lymphocytes (Bld) [#/Vol] 1.1 10*3/uL Normal 1.0-4.8 [facility] Comment on above: Performed By: #### C BCWD #### [facility] [address] [place] [address] Lymphocytes/100 WBC (Bld) 22.9 % Normal [facility] Comment on above: Performed By: #### C BCWD #### [facility] [address] [place] [address] MCH (RBC) [Entitic mass] 30.3 pg Normal 27.0-31.3 [facility] Comment on above: Performed By: #### C BCWD #### [facility] [address] [place] [address] MCHC 33.1 % Normal 33.0-37.0 [facility] Comment on above: Performed By: #### C BCWD #### [facility] [address] [place] [address] MCV (RBC) [Entitic vol] 91.4 fL Normal 82.0-100.0 [facility] Comment on above: Performed By: #### C BCWD #### [facility] [address] [place] [address] Monocytes (Bld) [#/Vol] 0.3 10*3/uL Normal 0.2-0.8 [facility] Comment on above: Performed By: #### C BCWD #### [facility] [address] [place] [address] Monocytes/100 WBC (Bld) 6.4 % Normal [facility] Comment on above: Performed By: #### C BCWD #### [facility] [address] [place] [address] Neutrophils (Bld) [#/Vol] 3.2 10*3/uL Normal 1.4-6.5 [facility] Comment on above: Performed By: #### C BCWD #### [facility] [address] [place] [address] Neutrophils/100 WBC (Bld) 67.1 % Normal [facility] Comment on above: Performed By: #### C BCWD #### [facility] [address] [place] [address] Platelets (Bld) [#/Vol] 268 10*3/uL Normal 130-400 [facility] Comment on above: Performed By: #### C BCWD #### [facility] [address] [place] [address] RBC (Bld) [#/Vol] 4.41 10*6/uL Normal 4.20-5.40 [facility] Comment on above: Performed By: #### C BCWD #### [facility] [address] [place] [address] WBC (Bld) [#/Vol] 4.8 10*3/uL Normal 4.8-10.8 [facility] Comment on above: Performed By: #### C BCWD #### [facility] [address] [place] [address] Comprehensive Metabolic Pane johanny 05-20-2020 Albumin [Mass/Vol] 3.8 g/dL Normal 3.5-4.6 [facility] Comment on above: Performed By: #### F SH #### [facility] [address] [place] [address] ALP [Catalytic activity/Vol] 75 U/L Normal 40-130 [facility] Comment on above: Performed By: #### F SH #### [facility] [address] [place] [address] ALT [Catalytic activity/Vol] 27 U/L Normal 0-33 [facility] Comment on above: Performed By: #### F SH #### [facility] [address] [place] [address] Anion gap [Moles/Vol] 9 mmol/L Normal 9-15 [facility] Comment on above: Performed By: #### F SH #### [facility] [address] [place] [address] AST [Catalytic activity/Vol] 20 U/L Normal 0-35 [facility] Comment on above: Performed By: #### F SH #### [facility] [address] [place] [address] Bilirubin [Mass/Vol] 0.3 mg/dL Normal 0.2-0.7 [facility] Comment on above: Performed By: #### F SH #### [facility] [address] [place] [address] Calcium [Mass/Vol] 8.5 mg/dL Normal 8.5-9.9 [facility] Comment on above: Performed By: #### F SH #### [facility] [address] [place] [address] Chloride [Moles/Vol] 105 mmol/L Normal 95-107 [facility] Comment on above: Performed By: #### F SH #### [facility] [address] [place] [address] CO2 [Moles/Vol] 27 mmol/L Normal 20-31 [facility] Comment on above: Performed By: #### F SH #### [facility] [address] [place] [address] Creatinine [Mass/Vol] 0.57 mg/dL Normal 0.50-0.90 [facility] Comment on above: Performed By: #### F SH #### [facility] [address] [place] [address] GFR >60.0 Normal >60 [facility] Comment on above: Result Comment: >60 mL/min/1.73m2 EGFR, calc. for ages 18 and older using the MDRD formula (not corrected for weight), is valid for stable renal function. Performed By: #### F SH #### [facility] [address] [place] [address] GFR/1.73 sq M.predicted among blacks MDRD (S/P/Bld) [Vol rate/Area] mL/min/{1.73_m2} Normal >60 [facility] Comment on above: Result Comment: >60 mL/min/1.73m2 EGFR, calc. for ages 18 and older using the MDRD formula (not corrected for weight), is valid for stable renal function. Performed By: #### F SH #### [facility] [address] [place] [address] Globulin (S) [Mass/Vol] 2.3 g/dL Normal 2.3-3.5 [facility] Comment on above: Performed By: #### F SH #### [facility] [address] [place] [address] Glucose [Mass/Vol] 88 mg/dL Normal 70-99 [facility] Comment on above: Performed By: #### F SH #### [facility] [address] [place] [address] Potassium [Moles/Vol] 3.9 mmol/L Normal 3.4-4.9 [facility] Comment on above: Performed By: #### F SH #### [facility] [address] [place] [address] Protein [Mass/Vol] 6.1 g/dL Low 6.3-8.0 [facility] Comment on above: Performed By: #### F SH #### [facility] [address] [place] [address] Sodium [Moles/Vol] 141 mmol/L Normal 135-144 [facility] Comment on above: Performed By: #### F SH #### [facility] [address] [place] [address] Urea nitrogen [Mass/Vol] 9 mg/dL Normal 6-20 [facility] Comment on above: Performed By: #### F SH #### [facility] [address] [place] [address] Lipid Panel Fastingon 2019 Cholesterol [Mass/Vol] 258 mg/dL Critically high 0-199 [facility] Comment on above: Result Comment: ATP III Cholesterol Classification is High. Performed By: #### L IPDF #### [facility] [address] [place] [address] HDL Cholesterol Fasting 43 mg/dL Normal 40-59 [facility] Comment on above: Result Comment: ATP III [...] CHD Performed By: #### L IPDF #### [facility] [address] [place] [address] LDL Cholesterol (Calculated) Fasting 175 mg/dL Critically high 0-129 [facility] Comment on above: Result Comment: ATP III LDL Classification is High. Performed By: #### L IPDF #### [facility] [address] [place] [address] Triglycerides Fasting 198 mg/dL Critically high 0-150 [facility] Comment on above: Result Comment: ATP III Triglycerides Classification is Borderline High. Performed By: #### L IPDF #### [facility] [address] [place] [address] TSH w/out Reflexon 0 TSH w/out Reflex 2.430 uIU/mL Normal 0.440-3.86 [facility] Comment on above: Performed By: #### T SH #### [facility] [address] [place] [address] Vitamin Don 05-20-2020 Vitamin D 22.7 ng/mL Low 30.0-100.0 [facility] Comment on above: Result Comment: (20- 30 ng/mL) Insufficiency This assay accurately quantifies the sum of vitamin D3, 25-Hydroxy and vitamin D2, 25-Hyroxy. Performed By: #### V ITD #### [facility] [address] [place] [address] Encounters Encounter Date Encounter Type Care Provider Facility Start: 01-20-2023 End: 01-23-2023 ambulatory [facility] CHRISTINE [facility] Start: 02-06-2022 End: 02-09-2022 ambulatory [facility] Start: 01-30-2022 End: 02-02-2022 ambulatory [facility] Start: 03-06-2021 End: 03-07-2021 ambulatory NISHA SEVILLA Facility:[facility] Start: 02-13-2021 End: 02-14-2021 ambulatory NISHA SEVILLA Facility:[facility] Start: 09-25-2020 End: 09-26-2020 ambulatory KELLY KENT Facility:[facility] Payers Date Payer Category Payer Unknown [id number] 2022 Unknown [id number] 1971 Unknown [id number] 2.16.84 [id number] 1971 Unknown [id number] 2.16.84 [id number] 1971 Unknown [id number] 2.16.84 [id number] 1971 Unknown [id number] 2.16.8 [id number] 1971 Unknown [id number] 2.16.8 [id number] 1971 Unknown [id number] 2.16.8 [id number] 1971 Unknown [id number] 2.16.8 [id number] 1959 Unknown [id number] Clinical Note 09-25-2020 Note Date & Type [...] by: AYSE FLAHERTY Date: 2020-09-25 14:47 [facility] Summary Purpose Family History No Family History Records FoundNo Family History Records FoundNo Family History Records Found Advance Directives No Advanced Directives Records FoundNo Advanced Directives Records FoundNo Advanced Directives Records Found Additional Source Comments INFORMATION SOURCE (unrecogn ized section and content) DATE CREATED AUTHOR 03/29/2021 [facility] DATE CREATED AUTHOR AUTHOR'S ORGANIZ ATION 03/31/2021 [facility] DATE CREATED AUTHOR AUTHOR'S ORGANIZ ATION 01/23/2023 [facility] FOR RECORDS PERTAINING TO PATIENTS WHO ARE [...] BE BASED ON THE PRIMARY CLINICAL RECORDS. [facility] [employer] [facility]. provides no warranty or guarantee of the accuracy or completeness of information in this document.
[2024-05-07 07:52] LABS: Estimated Average Glucose 120 mg/dL; Glycohemoglobin A1C 5.8 % (4.5-6.2)
[2024-05-07 08:18] LABS: Anion Gap 12.6; BUN Creatinine Ratio 19.7; Calcium 8.8 mg/dL (8.5-10.1); Carbon Dioxide 28.8 mmol/L (21.0-32.0); Chloride 108 mmol/L (98-107); Estimated GFR (African America >60 (>=60 mL/min/1.73m^2); Estimated GFR (Non-African Ame >60 (>=60 mL/min/1.73m^2); Glucose 99 mg/dL (74-106); Potassium 4.4 mmol/L (3.5-5.1); Sodium 145 mmol/L (136-145)
== END 2024-05-07 07:27 | disposition home or self-care (01) ==
LOC: LAB 07:28
PROVIDERS: PCP Family Medicine; Visit Provider Family Medicine
DX: E16.8 Other specified disorders of pancreatic internal secretion (principal)
CPT/HCPCS: 36415; 80048; 83036

== ENCOUNTER 2025-05-27 13:17 | Outpatient (OUT) | payer BC, SELFPAY ==
--- OUTSIDE RECORDS SUMMARY | 2025-05-27 13:20 | XMS_ITS | Clinical Summary ---
Author Organization [employer] Address [facility] [place] [address] Care Team Providers Care Loss Control Manager Name Role Phone Angela Stewart Primary Care Provider Active Problems ProblemNoted DateDiagnosed QpquSatulgmtxm72/21/2020COVID-19 ruled out06/12/2020 Flu-like /21/8238Kzubktmy05/01/2015Mixed rgmsyjezemgifi98/23/2015 Immunizations ImmunizationAdministration DatesNext DueInfluenza, Zxzydaiszhx57/07/2021, 04/11/2020,03/23/2018Novel krrvmohcw-S2J9-91, preservative-free04/19/2009Pfizer SARS-CoV-2 Emqdrgxdtts35/14/2021,02/13/2021Tdap08/31/2015 Family History Medical HistoryRelationNameCommentsBreast cancerNeg HxRelationNameStatusComments FatherAliveMaternal GrandfatherDeceasedMaternal GrandmotherAliveMotherAlive Paternal GrandfatherDeceasedPaternal GrandmotherDeceasedSister 1AliveSister 2 Alive Social History Tobacco UseTypesPacks/DayYears UsedDateSmoking Tobacco: NeverSmokeless Tobacco: NeverAlcohol UseStandard Drinks/WeekCommentsNo0 (1 standard drink = 0.6 oz pure alcohol)CommentsUnknownSex and Gender InformationValueDate RecordedSex Assigned at BirthNot on fileLegal RvdJvsfvl80/01/2022 4:29 PM EDTGender Identity Not on fileSexual OrientationNot on file Last Filed Vital Signs Vital SignReadingTime TakenCommentsBlood Jexgvoiy256/80107/11/2020 8:11 AM EST Bvmml817605/11/2021 8:11 AM DTNVwdwjpaorar42.4 ??C (97.5 ??F)05/11/2021 8:11 AM ESTRespiratory Yrzq517907/16/2019 4:11 PM ESTOxygen Ytkbribbjk98%05/11/2021 8:11 AM ESTInhaled Oxygen Concentration--Xmhklq595 kg (228 lb)05/11/2021 8:11 AM EST Ytexcd762 cm (5' 3 )05/11/2021 8:11 AM ESTBody Mass Index40.39107/11/2020 8:11 AM EST Plan of Treatment Not on file Care Teams Team MemberRelationshipSpecialtyStart DateEnd Date Roscoe-Angela Hampton [address] [place] [address] PCP - Ctndmpl74/9/21
--- OUTSIDE RECORDS SUMMARY | 2025-05-27 13:20 | XMS_ITS | CCD ---
Author Organization [facility] Care Team Providers Care C 13 Catapult Operator Name Role Phone NISHA SEVILLA Admitting Unavailable NISHA SEVILLA Attending Unavailable NISHA SEVILLA Consulting Unavailable NISHA SEVILLA Attending Unavailable NISHA SEVILLA Consulting Unavailable NISHA SEVILLA Admitting Unavailable YOLI, KELLY Admitting Unavailable DR AYSE FLAHERTY Consulting Unavailable YOLIKELLY Attending Unavailable YOLI, KELLY Consulting Unavailable CHRISTINE, ELMA Referring Unavailable CHRISTINE, ELMA Primary Care Unavailable BILL STEWART Primary Care Unavailabl VIJAYA DsouzaISSA P Referring Unavailable BILL STEWART Primary Care Unavailabl e VIJAYA SANDOVALISSA P Referring Unavailable CHRISTINE, ELMA Primary Care Unavailable CHRISTINE, ELMA Referring Unavailable Roscoe-BertaBill raines PA-C Primary Care Provider Marco A Bal DO Attending Provider [phone] Marianela Sadler DO Primary Care Provider Marianela Sadler DO Attending Provider [phone] Allergies Allergy ClassificationReported Allergen(s)Allergy TypeDate of OnsetReaction(s) Facility (1 source)PenicillinDrug Rjmeewz86-45-6603JisProm[facility] (1 source)Adhesive agentAllergy to wbgwwaock95-51-4798qvlqYoktlzjfmSamaritan Hospital (1 source)zulay allergenic extractDrug Zmabsla39-29-7990ClshgdiFimogqbtiMercy Health West Hospital (1 source)nickelDrug Zyzomza47-65-3118vgzoNfjprkbtfSamaritan Hospital (1 source)PenicillinDrug Albjxjp11-15-7533qmxrSkwsipyuoSamaritan Hospital Medications Current Medications MedicationDrug Class(es)DatesSig (Normalized)Sig (Original)atorvastatin 40 mg oral tablet (2 sources)HMG-CoA Reductase InhibitorStart: 04-26-2025 End: 11-13-9804wnvh 1 tablet by mouth once dailyAtorvastatin 40 mg tablet Active 40 MG PO Daily 90 90 4 April 26, 2025 8:28am Complies with drug therapy prasterone 5 mg oral capsule (1 source)Start: 09-63-8621Bljlyecvgs (Dhea) 5 mg capsule Active MG PO April 26, 2025 12:00am Complies with drug therapy Problems Active Problems Problem ClassificationProblemDateDocumented DateEpisodic/ChronicImmunizations and screening for infectious disease (4 sources)Encounter for immunization; Translations: [ENCOUNTER FOR IMMUNIZATION]Onset: 09-99-1850AkrdpfhtXmxwvwkzftlo breast conditions (1 source)Solitary cyst of left breast; Translations: [Solitary cyst of left breast]Onset: 76-54-4457WxchwbyeDjxdj screening for suspected conditions (not mental disorders or infectious disease) (3 sources)Other abnormal and inconclusive findings on diagnostic imaging of breast; Translations: [Encounter for screening mammogram for malignant neoplasm of breast]Onset: 744152-41-5316Cgrfqyhw Past or Other Problems Problem ClassificationProblemDateDocumented DateEpisodic/ChronicOther connective tissue disease (4 sources)Pain in right hand; Translations: [PAIN IN RIGHT HAND]Onset: 23-94-6593Gzcgwmpf Results Test NameValueInterpretationReference RangeFacilityBasophils Auto (Bld) [#/Vol] Ordered By: Marco A Bal on 59-62-5869Kohvtzvpe (Bld) [#/Vol]0.0 10 3/uL0.0-0.1 [facility] HospitalBasophils/100 WBC Auto (Bld)Ordered By: Marco A aBl on 00-61-0439Wcmiqxlck/100 WBC (Bld)0.7 %0.2-2.0[facility] HospitalCholesterol in LDL Calc [Mass/Vol]Ordered By: Marco A Bal on 04-14-2025 Cholesterol in LDL [Mass/Vol]107.8 mg/dLAultman Alliance Community HospitalComment on above:<100 mg/dl TXWCSES372-040 mg/dl NEAR OR ABOVE USIHFKJ239-722 mg/dl BORDERLINE DSQZ456-400 mg/dl HIGH>190 mg/dl VERY HIGHCholesterol in VLDL Calc [Mass/Vol]Ordered By: Marco A Bal on 53-96-4632Zsdcmwdurzw in VLDL [Mass/Vol]24.2 mg/dLAultman Alliance Community HospitalEosinophils/100 WBC Auto (Bld)Ordered By: Marco A Bal on 07-06-8834Iuzdxsyelkw/100 WBC (Bld)5.2 %0.9-7.0[facility] HospitalErythrocyte distribution width Auto (RBC) [Ratio]Ordered By: Marco A Bal on 66-47-6714Xsiodtkoafw distribution width (RBC) [Ratio]12.7 % 11.0-15.0[facility] HospitalGlobulin Calc (S) [Mass/Vol]Ordered By: Marco A Bal on 00-24-8964Dxybxgfl (S) [Mass/Vol]3.1 g/dLAultman Alliance Community HospitalGlomerular filtration rate (GFR) estimation in non- AmericanOrdered By: Marco A Bal on 29-35-7514CGB/1.73 sq M.predicted among non- blacks MDRD (S/P/Bld) [Vol rate/Area]mL/min/{1.73_m2}>=60 mL/min/1.73m 2 [facility] HospitalHematocrit Auto (Bld) [Volume fraction]Ordered By: Marco A Bal on 97-79-6042Vauczawhmq (Bld) [Volume fraction]42.7 %36.0-48.0 [facility] HospitalHemoglobin [Mass/volume] in BloodOrdered By: Marco A Bal on 15-11-0454Radmruuxue (Bld) [Mass/Vol]14.0 g/dL12.0-16.0[facility] HospitalLaboratory - Chemistry and Chemistry - challengeOrdered By: Marco A Bal on 82-89-4354Zjbnfeu [Mass/Vol]3.6 g/dL3.4-5.0[facility] HospitalALP [Catalytic activity/Vol]98 U/M85-353UlewkzjeoAultman Alliance Community HospitalALT [Catalytic activity/Vol]39 U/Q52-80WspurilxdAultman Alliance Community Hospital AST [Catalytic activity/Vol]20 U/J71-81SebtciyjxAultman Alliance Community Hospital Bilirubin [Mass/Vol]0.5 mg/dL0.2-1.0[facility] HospitalCalcium [Mass/Vol]8.9 mg/dL8.5-10.1FMercy Health St. Vincent Medical CenterChloride [Moles/Vol] 106 mmol/V73-320BagqhddvzAultman Alliance Community HospitalCholesterol [Mass/Vol]178 mg/dL <=200[facility] HospitalCholesterol in HDL [Mass/Vol]46 mg/dL40-60 [facility] HospitalComment on above:> or =60 mg/dl - LOW CARDIOVASCULAR RISK<40 mg/dl - HIGH CARDIOVASCULAR RISKCO2 [Moles/Vol]28.7 mmol/L21.0-32.0[facility] HospitalCreatinine [Mass/Vol]0.39 mg/dL Low0.55-1.02[facility] HospitalGFR/1.73 sq M.predicted MDRD (S/P/Bld) [Vol rate/Area]mL/min/{1.73_m2}>=60 mL/min/1.73m 2FMercy Health St. Vincent Medical CenterGlucose [Mass/Vol]94 mg/eE78-021DzsybhkvmAultman Alliance Community Hospital Potassium [Moles/Vol]3.5 mmol/L3.5-5.1FMercy Health St. Vincent Medical CenterProtein [Mass/Vol]6.7 g/dL6.4-8.2FTrinity Health Systemodium [Moles/Vol]145 mmol/S313-897SltpgkzxaAultman Alliance Community HospitalTriglyceride [Mass/Vol]121 mg/dL <=150[facility] HospitalUrea nitrogen [Mass/Vol]15.0 mg/dL7.0-18.0 [facility] HospitalUrea nitrogen/Creatinine [Mass ratio]38.5 mg/mg [facility] HospitalLaboratory - Hematology and Cell countsOrdered By: Marco A Bal on 84-33-8515Xdmzhxql granulocytes/100 WBC (Bld)0.2 %0.0-0.5 [facility] HospitalLeukocytes [#/volume] corrected for nucleated erythrocytes in Blood by Automated counOrdered By: Marco A Bal on 63-48-3376BMN corrected for nucl RBC Auto (Bld) [#/Vol]4.2 10 3/uL4.0-11.0[facility] HospitalLymphocytes Auto (Bld) [#/Vol]Ordered By: Marco A Bal on 04-14-2025 Lymphocytes (Bld) [#/Vol]1.1 10 3/uLLow1.2-3.8[facility] Lymphocytes/100 WBC Auto (Bld)Ordered By: Marco A Bal on 04-14-2025 Lymphocytes/100 WBC (Bld)25.9 %20.5-60.0[facility] SpringfieldH Auto (RBC) [Entitic mass]Ordered By: Marco A Bal on 10-59-3225ECE (RBC) [Entitic mass]29.9 pg26.7-34.0[facility] HospitalMCHC Auto (RBC) [Mass/Vol] Ordered By: Marco A Bal on 12-50-8206EDVX (RBC) [Mass/Vol]32.8 g/dL29.9-35.2 [facility] HospitalMCV Auto (RBC) [Entitic vol]Ordered By: Marco A Bal on 13-30-5413ZFJ (RBC) [Entitic vol]91.0 fL81.0-99.0[facility] HospitalMonocytes Auto (Bld) [#/Vol]Ordered By: Marco A Bal on 04-14-2025 Monocytes (Bld) [#/Vol]0.5 10 3/uL0.3-0.8[facility] Monocytes/100 WBC Auto (Bld)Ordered By: Marco A Bal on 66-79-1622Opidxrrxa/100 WBC (Bld)10.9 %1.7-12.0[facility] HospitalNeutrophils Auto (Bld) [#/Vol]Ordered By: Marco A Bal on 52-03-3296Kzthjbnujvx (Bld) [#/Vol]2.4 10 3/uL 1.4-6.5FMercy Health St. Vincent Medical CenterNeutrophils/100 WBC Auto (Bld)Ordered By: Marco A Bal on 91-40-5014Edihtgmynfj/100 WBC (Bld)57.1 %43.0-75.0[facility] HospitalNo Panel InformationOrdered By: Marco A Bal on 04-14-2025 Eosinophils # (Auto)0.2 10 3/uL0.0-0.7FMercy Health St. Vincent Medical CenterImmature Granulocyte # (Auto)0.01 10 3/uL0.00-0.03[facility] Platelet mean volume Auto (Bld) [Entitic vol]Ordered By: Marco A Bal on 49-48-1864Ttqcleze mean volume (Bld) [Entitic vol]9.8 fL9.5-13.5FMercy Health St. Vincent Medical CenterPlatelets Auto (Bld) [#/Vol]Ordered By: Marco A Bal on 71-46-3861Rdldrrtvx (Bld) [#/Vol]229 10 3/mH989-923OqqapnyroAultman Alliance Community HospitalRBC Auto (Bld) [#/Vol]Ordered By: Marco A Bal on 56-93-8539GQD (Bld) [#/Vol]4.69 10 6/uL4.20-5.40[facility] Board[facility] Hospitalerum or plasma albumin/globulin mass ratioOrdered By: Marco A Bal on 21-02-9448Thfglez/Globulin [Mass ratio]1.2 {ratio}[facility] Boardman Hospitalerum or plasma anion gap determinationOrdered By: Marco A Bal on 21-41-7501Eszwr gap [Moles/Vol]13.8 mmol/LFTrinity Health Systemerum or plasma total cholesterol/high density lipoprotein (HDL) cholesterol mass ratOrdered By: Marco A Bal on 36-36-7739Sxpccwnoudv.total/Cholesterol in HDL [Mass ratio]3.9 {ratio}[facility] HospitalComment on above:3.3 - 4.4 LOW RISK4.4 - 7.1 AVERAGE RISK7.1 - 11.0 MODERATE RISK>11.0 HIGH RISKTriiodothyronine, Reverseon 80-58-5243Falwrmgqwrbkjziu, Ycippwu96.5 ng/dLNormal9.0-27.0[facility] PorterComment on above:Result Comment: INTERPRETIVE INFORMATION: Triiodothyronine, Reverse - LC-MS/MS This test was developed and its performance characteristics determined by [employer]. It has not been cleared or approved by the US Food and Drug Administration. This test was performed in a CLIA certified laboratory and is intended for clinical purposes. Performed By: [facility] [address] [place] [address] Slate Cutter: Edgar Nascimento MD, PhD CLIA Number: [id number] Quanton 01-08-8841Fltuapitygiq, hplc-ms/ms 0.55 ng/mLNHealthSouth Rehabilitation Hospital of LittletonComment on above:Result Comment: Females, 17 years and older Cycle Days Reference Interval (ng/mL) 1 - 6 ............... Less than or equal to 0.17 7 - 12 .............. Less than or equal to 1.35 13 - 15 .............. Less than or equal to 15.63 16 - 28 .............. Less than or equal to 25.55 Post-Menopausal ...... Less than or equal to 0.10 Reference Intervals (ng/mL): 1st Trimester ...... 6.25 - 45.46 2nd Trimester ..... 15.40 - 52.10 3rd Trimester ..... 24.99 - 99.92 REFERENCE INTERVAL: Progesterone Quantitative by HPLC-MS/MS, Serum or Plasma Access complete set of age- and/or gender-specific reference intervals for this test in the Factual Laboratory Test Directory ([employer]). This test was developed and its performance characteristics determined by [employer]. It has not been cleared or approved by the US Food and Drug Administration. This test was performed in a CLIA certified laboratory and is intended for clinical purposes. Performed By: [employer] [address] [place] [address] Slate Cutter: Edgar Nascimento MD, PhD CLIA Number: [id number], Free And Totalon 62-88-3910Fhgmcud Free17 uIU/mL Normal3-25[facility]health PorterTotal Vvvmeft28 uIU/mLNormal3-25[facility] PorterComment on above:Result Comment: INTERPRETIVE INFORMATION: Insulin, Free and Total This test reacts on a nearly equimolar basis with the analogs insulin aspart, insulin glargine, and insulin lispro. Insulin detemir exhibits approximately 50 percent cross-reactivity. Test reactivity with insulin glulisine is negligible (<3 percent). To convert to pmol/L, multiply uIU/mL by 6.0. Reference intervals established for fasting specimens. Performed By: [employer] [address] [place] [address] Slate Cutter: Edgar Nascimento MD, PhD CLIA Number: [id number], Serumon 10-69-1336Zdhhnpryw, Patoi063 ng/mL Vpvizu85-932ZbereAdventhealth PorterComment on above:Result Comment: TEST INFORMATION: Serotonin, Serum This test was developed and its performance characteristics determined by [employer]. It has not been cleared or approved by the US Food and Drug Administration. This test was performed in a CLIA certified laboratory and is intended for clinical purposes. Performed By: [employer] [address] [place] [address] Slate Cutter: Edgar Nascimento MD, PhD CLIA Number: [id number] Sulfate, Serumon 22-20-5762PIHA Sulfate, Serum44.0 ug/kQFghttu38.4-256[facility] PorterComment on above:Result Comment: Performed at [facility], [address] [place] [address] .Estradiolon 29-73-0511Srymwbyig6.5 pg/mLNormalAdventhealth PorterComment on above:Result Comment: FEMALES: Normally menstruating Luteal phase 60-232 Follicular phase 31-90 Midcycle phase 60-533 Postmenopausal (untreated) <138 Fulvestrant treatment will show an increased estradiol concentration with this methodology. Alternate methodologies are available upon request. [facility], [address] [place] [address] .T3, Freeon 86-17-3480Cbli T3 [Mass/Vol]3.36 pg/mLNormal2.00-4.40 [facility] PorterComment on above:Result Comment: [facility] at [facility], [address] [place] [address] .TSH w/Reflexon 00-34-4991HOY w/Reflex2.380 uIU/mLNormal0.440-3.86 [facility] PorterComment on above:Result Comment: Free T4 will automatically reflex with a TSH result of <0.270 or >4.200Performed By: #### TSHR #### [facility] [address] [place] [address] Uzpisnjkkrae, Free and Totalon 03-95-9181Bwi Hormone Binding Fzuwlpgs80 nmol/SXihbia22-990BzljbAdventhealth PorterComment on above: Result Comment: Performed at [facility], [address] [place] [address] .Testosterone [Mass/Vol]18 ng/dLNormal3-41[facility] PorterTestosterone, Free2.2 pg/mLNormal0.6-3.8[facility] Comment on above:Result Comment: Post-menopausal range: 0.6-3.8 The concentration of free testosterone is derived from a mathematical expression based on the constant for the binding of testosterone to albumin and/or sex hormone binding globulin. Performed at [facility], [address] [place] [address] .Thyroxine Freeon 93-67-7672Fhlebjbgm Free1.07 ng/dLNormal0.84-1.68 [facility] PorterComment on above:Performed By: #### FRT4 #### [facility] [address] [place] [address] ZMA MARCO ANTONIO DIGITAL DIAGNOSTIC BILATERALon 85-21-8478TMA MARCO ANTONIO DIGITAL DIAGNOSTIC BILATERALEXAMINATION: EVERTON MARCO ANTONIO DIGITAL DIAGNOSTIC BILATERAL; US [...] ultrasound guidance for treatment if desired. The [employer] [employer] and the Society of Breast Imaging recommends women receive annual mammograms starting at age 40. The [place] Cancer Society's guidelines for women at AVERAGE [...] by: Alok Lara III, DO 01/20/23 Final resultNoSt. Mary-Corwin Medical CenterUS BREAST LIMITED LEFTon 38-56-9859SC BREAST LIMITED LEFTEXAMINATION: EVERTON MARCO ANTONIO DIGITAL DIAGNOSTIC BILATERAL; US [...] ultrasound guidance for treatment if desired. The [place] [employer] and the Society of Breast Imaging recommends women receive annual mammograms starting at age 40. The [place] [employer] Society's guidelines for women at AVERAGE [...] by: Alok Lara III, DO 01/20/23 Final resultNoSt. Mary-Corwin Medical CenterUS BREAST LIMITED LEFTon 44-62-4407TJ BREAST LIMITED LEFTCOMPARISON: September 25, 2012, ultrasound left breast; January 30, 2022, mammogram HISTORY: R92.8 Abnormal mammogram ICD10 PATIENT NAME: RASHAWN CHAHAL: TECHNIQUE: US BREAST LIMITED LEFT FINDINGS: At 2:00 6 cm from the nipple 4.8 x 3.9 x 2.2 cm cyst is seen. It has a single septation. There alsois an adjacent cyst that measures 0.9 x 1.0 x 0.8 cm. This appears to be a simple cyst. IMPRESSION: Recommend annual bilateral 2-D and 3-D mammograms, routine physicals as recommended and any palpable abnormality be managed based on findings clinical examination. BI-RADS 2: BENIGN FINDINGS. Board Certified Radiologists. Accredited by the ACR and FDA. MAMMOGRAPHY IS VERY IMPORTANT TO YOUR HEALTH. THE [place] CANC[employer] SOCIETY GUIDELINES RECOMMEND THATWOMEN 40 YEARS OF AGE AND OLDER SHOULD HAVE A MAMMOGRAM EVERY YEAR. A REMINDER LETTER WILL BE SENT AT THE APPROPRIATE TIME. Interpreted by: Kaushik Tamez DO Signed by: Kaushik Tamez DO 02/06/22 Final resultNoSt. Mary-Corwin Medical CenterMAM MARCO ANTONIO DIGITAL SCREEN BILATERAL on 78-97-6028UIN MARCO ANTONIO DIGITAL SCREEN BILATERALEXAMINATION: EVERTON MARCO ANTONIO DIGITAL SCREEN BILATERAL CLINICAL [...] IS VERY IMPORTANT TO YOUR HEALTH. THE [employer] CANC[employer] SOCIETY GUIDELINES RECOMMEND THATWOMEN 40 YEARS OF AGE AND OLDER SHOULD HAVE A MAMMOGRAM EVERY YEAR. A REMINDER LETTER WILL BE SENT AT THE APPROPRIATE TIME. THIS FACILITY UTILIZES A REMINDER SYSTEM TOENSURE ALL PATIENTS RECEIVE REMINDER NOTIFICATIONS AT THE [...] Signed by: Pranav Carrillo MD 02/02/22 Final resultNormCentennial Peaks Hospital Vital Signs Date TimeVital SignValuePerforming GgyogfaxsZioieqgt54-04-2818 07:56-0500Body yxrbgb684.02 cmRaquel Roscoe-Berta PA-C Work Phone: [phone] [place], [place] 8553111-04-2025 07:56-0500 Body mass index (BMI) [Ratio]42.5 kg/x4Vzgwjl Roscoe-Berta PA-C Work Phone: [phone] [place], [place] 8553111-04-2025 07:56-0500 Body .86 kgRaquel Roscoe-Berta PA-C Work Phone: [phone] [place], [place] 8553111-04-2025 07:56-0500 Diastolic blood mm[Hg]Bill Roscoe-Berta PA-C Work Phone: [phone] [place], [place] 8553111-04-2025 07:56-0500 Heart rate75 /minRaquel Roscoe-Berta PA-C Work Phone: [phone] [place], [place] 8553111-04-2025 07:56-0500 Respiratory rate20 /minRaquel Roscoe-Berta PA-C Work Phone: [phone] [place], [place] 8553111-04-2025 07:56-0500 SaO2% (BldA) [Mass fraction]96 %Bill Roscoe-Berta PA-C Work Phone: [phone] [place], [place] 8553111-04-2025 07:56-0500 Systolic blood pbadkkwx993 mm[Hg]Bill Roscoe-Berta PA-C Work Phone: [phone] [place] [address] Encounters Encounter DateEncounter TypeCare ProviderFacilityStart: 04-26-2025 End: 05-80-0968yahufkxlohAzqwrv Roscoe-Berta PA-C Work Phone: -[facility] ClydeStart: 04-26-2025 End: 60-19-6202Ueecoxt encounter procedureJeanoop Viktoriya DO-[facility] [place] Work Phone: Start: 48-04-2449Mxw-patient / Non-visitMarco A Loomis DO-Located [facility] [employer] Work Phone: Start: 01-20-2023 End: 59-54-4274otsrjfaqwvFRSHACV [facility] Campustart: 02-06-2022 End: 29-96-8772wbgzebglfvPXEQVF [facility] Hospitaltart: 01-30-2022 End: 66-12-5212kuwnyawfusEJPYBFEating Recovery Center a [facility] for Children and Adolescentstart: 03-06-2021 End: 79-53-6352zjcmopsjoiYFTWBA ROSSFacility:H6Riqnh: 02-13-2021 End: 83-01-9590xumdsgfzwwVDPEST ROSSFacility:K7Cmswi: 09-25-2020 End: 98-67-6103cikcsxtsioNWQORIT NOYESFacility:H1 Plan of Treatment DateCare ActivityDetailAuthorMG Breast - bilateral ScreeningOrlando [facility] Payers DatePayer CategoryPayerPolicy [id number] [id number] .[id number]. [id number] .[id number] .1.083545.3.57[id number] .1.189674.3.57[id number] .1.742250.3.57[id number] 2.840.1.354296.3.57[id number] 2.16.840.1.376294.3.579.2.[id number] Social History DateTypeDetailFacilityStart: 53-68-1892Rqpxgar smoking status NHISNever smoked tobacco (finding)[facility] HospitalexFemale (finding)[facility] Hospitaltart: 40-12-4647Kbi Assigned At [facility] Clinical Note 09-25-2020 Note Date & UmjuFhlxTjfhhrpj09-03-5924 NotePROCEDURE: XR HAND RT 2 V HISTORY: Pain in right hand ; fourth and fifth metacarpal phalangeal joint pain; struck hand on doorway COMPARISON: None. FINDINGS: BONES:No fracture, acute abnormality, or significant arthropathy. SOFT TISSUES:No visible soft tissue swelling. EFFUSION:None visible. OTHER: Negative. IMPRESSION: 1. Normal examination. Electronically authenticated by: AYSE FLAHERTY Date: 2020-09-25 14:47The [facility] Evaluation note Note Date & TypeNoteFacilityEvaluation noteNo assessment information available [facility] Work Phone: Reason for referral (narrative) Note Date & TypeNoteFacilityReason for referral (narrative)No reason for referral information availableMercy Health Allen Hospital Work Phone: Summary Purpose Family History Relationship Condition Age at Onset Recorded Date/T antolin maternal grandfather Chronic obstructive pulmonary disease Unknown High blood cholesterolUnknownpaternal grandfatherMalignant neoplasmUnknownfather Malignant neoplasmUnknownmotherHigh blood cholesterolUnknownsisterHigh blood cholesterolUnknown Advance Directives Advance Directive Response Recorded Date/ Time Advance Directives No February 3:55pm Chief Complaint and Reason for Visit Chief Complaint Admit Date new patient April 26, 2025 7 :51am Additional Source Comments INFORMATION SOURCE (unrecogn ized section and content) DATE CREATED AUTHOR 03/29/2021 [facility] DATE CREATED AUTHOR AUTHOR'S ORGANIZ ATION 01/23/2023 [facility] DATE CREATED AUTHOR AUTHOR'S ORGANIZ ATION 07/15/2024 [facility] Care Teams (unrecognized sec tion and content) Team Status: Active Member Role/Relationship Status Dates Marianela Sadler DO Primary Care Provider Active Team Status: Active Member Role/Relationship Status Dates Bill Stewart PA-C Primary Care Provider Acti ve Start: April 14, 2025 Marco A Bal DOAttending ProviderActiveStart: April 14, 2025 Team Status: Inactive Member Role/Relationship Status Dates Marianela Sadler DO Primary Care Provider Active S tart: April 26, 2025 End: April 26, 2025Ara Victoria ProviderActiveStart: April 26, 2025 End: April 26, 2025 Goals (unrecognized section and content) Goals may be documented in a n alternate section FOR RECORDS PERTAINING TO PATIENTS WHO ARE [...] BE BASED ON THE PRIMARY CLINICAL RECORDS. [facility] [employer] provides no warranty or guarantee of the accuracy or completeness of information in this document.
--- NOTE | 2025-05-27 13:21 | MM_ITS ---
Patient Name: RASHAWN CHAHAL MR#: [id number] : 1970 Exam Date: 05/27/2025 Ordering Doctor: JOSE CANDELARIA . RADIOLOGY REPORT PROCEDURE: MM TOMOSYNTHESIS SCREENING BI COMPARISON: MM TOMOSYNTHESIS SCREENING BI, 02/04/2024. MG MAMM DIAGNOSTIC 3D ZE CAD, 01/20/2023. MG MAMM SCREEN ZE W CAD, 01/30/2022. MG MAMM SCREEN ZE W CAD, 04/22/2018. INDICATIONS: Screening Calculator Name NCI Breast Cancer Risk Assessment Tool 5 Year Breast Cancer Risk Not Reported. Lifetime Breast Cancer Risk Not Reported. Personal Breast Cancer No Personal Ovarian Cancer No Treatments None Family Cancers None LOCATION: [facility] BREAST COMPOSITION: The breasts are extremely dense, which lowers the sensitivity of mammography. FINDINGS: RIGHT BREAST: No significant suspicious finding. Benign-appearing calcifications are present. There are similar focal asymmetries. LEFT BREAST: No significant suspicious finding. Benign-appearing calcifications are present. There are similar focal asymmetries. DIAGNOSTIC CATEGORY 2--BENIGN FINDING. NO CHANGE FROM COMPARISON. RECOMMENDATIONS: ROUTINE MAMMOGRAM AND CLINICAL EVALUATION IN 12 MONTHS. Dictated by: Sheldon Rivera MD on 05/27/2025 at 15:14 Approved by: Sheldon Rivera MD on 05/27/2025 at 15:15
== END 2025-05-27 13:18 | disposition home or self-care (01) ==
LOC: MAMMO 13:17
PROVIDERS: PCP Family Medicine; Visit Provider Family Medicine
DX: Z12.31 Encounter for screening mammogram for malignant neoplasm of breast (principal)
CPT/HCPCS: 77063; 77067